=== PATIENT | male | born 1950 | race Caucasian/White ===

== ENCOUNTER → 2024-07-15 08:34 | Outpatient (REF) | payer OTHER, SELFPAY | LOC: HWRAD 08:34 | PROVIDERS: ATTENDING PHYSICIAN Family Medicine | DX: R47.89 Other speech disturbances (principal); G45.9 Transient cerebral ischemic attack, unspecified | CPT/HCPCS: 70450 ==

== ENCOUNTER → 2024-07-17 13:26 | Outpatient (REF) | payer OTHER, SELFPAY | LOC: RAD 13:26 | PROVIDERS: ATTENDING PHYSICIAN Family Medicine | DX: G45.9 Transient cerebral ischemic attack, unspecified (principal); R47.89 Other speech disturbances | CPT/HCPCS: 93880 ==